=== PATIENT | male | born 1990 | race African-American/Black ===

== ENCOUNTER 2021-12-13 18:37 | Emergency (ER) | payer SELFPAY ==
[~2021-12-13] VITALS: Ht 185.4 cm; Wt 77.1 kg
[2021-12-13 18:40] VITALS: BP 134/85
[2021-12-13] MEDS ORDERED: IBUPROFEN 800 MG TAB PO ONE (21:15)
[2021-12-13] MEDS ORDERED: IBUP800T27 PO (21:26)
== END 2021-12-13 21:33 | disposition home or self-care (01) ==
LOC: ER 18:38
DX: S96.912A Strain of unspecified muscle and tendon at ankle and foot level, left foot, initial encounter (principal); F17.210 Nicotine dependence, cigarettes, uncomplicated; W01.0XXA Fall on same level from slipping, tripping and stumbling without subsequent striking against object, initial encounter; Y93.01 Activity, walking, marching and hiking; Y92.89 Other specified places as the place of occurrence of the external cause; Y99.8 Other external cause status
CPT/HCPCS: 73610

== ENCOUNTER 2021-12-15 19:04 | Emergency (ER) | payer SELFPAY ==
[~2021-12-15] VITALS: Ht 185.4 cm; Wt 74.8 kg
[~2021-12-15 19:04] MED LIST: IBUP800T27 PO
[2021-12-15 19:05] VITALS: BP 138/82
== END 2021-12-15 20:16 | disposition left against medical advice (07) ==
LOC: ER 19:04
DX: S96.912A Strain of unspecified muscle and tendon at ankle and foot level, left foot, initial encounter (principal); F17.210 Nicotine dependence, cigarettes, uncomplicated; Z53.29 Procedure and treatment not carried out because of patient's decision for other reasons; X58.XXXA Exposure to other specified factors, initial encounter; Y93.89 Activity, other specified; Y92.89 Other specified places as the place of occurrence of the external cause; Y99.8 Other external cause status